=== PATIENT | female | born 1995 | race Caucasian/White ===

== ENCOUNTER → 2020-07-17 11:53 | Outpatient (CLI) | payer BC, SELFPAY ==
[2020-07-17 12:29] LABS: Basophils # 0.1 K/mm3 (0-0.2); Basophils % 0.6 % (0.1-2.0); Eosinophils # 0.1 K/mm3 (0.0-0.4); Eosinophils % 0.5 % (0.1-12.0); Hemoglobin 14.6 g/dL (12.2-16.2); Lymphocytes # 2.7 K/mm3 (0.7-4.5); Lymphocytes % 31.5 % (10-50); Mean Corpuscular HGB Conc 33.1 g/dL (31.8-35.4); Mean Corpuscular Hemoglobin 29.5 pg (27.0-31.2); Mean Corpuscular Volume 89.2 fl (81-99); Mean Platelet Volume 8.3 fl (7.4-10.4); Monocytes # 0.3 K/mm3 (0.1-1.0); Monocytes % 3.2 % (1.7-9.3); Neutrophils # 5.4 K/mm3 (1.8-7.8); Neutrophils % 64.2 % (37.0-80.0); Platelet Count 295 K/mm3 (142-424); Red Blood Count 4.93 M/mm3 (4.20-5.40); Red Cell Distribution Width 13.1 % (11.5-17.5); White Blood Count 8.5 K/mm3 (4.8-10.8)
[2020-07-17 12:49] LABS: Chloride 105 mmol/L (98-107); Potassium 4.4 mmoL/L (3.5-5.1); Sodium 139 mmol/L (136-145)
[2020-07-17 12:51] LABS: Alanine Aminotransferase 11 U/L (12-78); Aspartate Amino Transferase 21 U/L (14-36); Bilirubin,Unconjugated 0.6 mg/dL (0.0-1.1); Blood Urea Nitrogen 14 mg/dl (7-17); Estimated Glomerular Filt Rate 87 ml/min (>60); GFR (African American) 106 ML/MIN (>60)
[2020-07-17 12:52] LABS: Albumin Level 4.9 g/dl (3.5-5.0); Alkaline Phosphatase 69 U/L (38-126); Anion Gap 15.4 mEq/L (5-15); Bilirubin,Direct 0.2 mg/dl (0.0-0.4); Bilirubin,Indirect 0.5 mg/dL (0.0-0.9); Bilirubin,Total 0.7 mg/dl (0.2-1.3); Carbon Dioxide 23 mmol/L (22.0-30.0); Chol/HDL Ratio 3.7 (1-3.5); Cholesterol 259 mg/dl (140-200); Glucose 94 mg/dl (74-100); HDL Cholesterol 70 mg/dl (40-60); Triglycerides 232 mg/dl (30-150); VLDL Cholesterol 46 mg/dL (0-40)
[2020-07-17 13:03] LABS: Direct LDL Cholesterol 150.31 mg/dL (100-129)
[2020-07-17 13:09] LABS: Free T4 (Free Thyroxine) 0.92 ng/dl (0.78-2.19)
[2020-07-17 13:23] LABS: Thyroid Stimulating Hormone 2.42 uIU/mL (0.465-4.68)
== END ==
PROVIDERS: Visit Provider Physician Assistant
DX: I10 Essential (primary) hypertension (principal); I34.1 Nonrheumatic mitral (valve) prolapse; R40.0 Somnolence; Z82.49 Family history of ischemic heart disease and other diseases of the circulatory system
CPT/HCPCS: 36415; 80048; 80061; 80076; 84439; 84443; 85025

== ENCOUNTER 2020-12-18 20:35 | Emergency (ER) | payer BC, SELFPAY ==
[2020-12-18 21:15] VITALS: BP 171/98; PULSE 139; RESP 18; TEMP 37.2; O2SAT 98; BMI 25.8
[2020-12-18 21:19] VITALS: BP 132/88; PULSE 86; RESP 18; TEMP 36.9
--- NOTE | 2020-12-18 21:41 | HMH.EDUTC ---
[facility] [place] Disposition Clinical Impression: Viral syndrome, Exposure to COVID-19 virus Disposition: Home, Self-Care Condition on Discharge: Good Instructions: DI for Viral Syndrome, Preventing the Spread of Coronavirus Discharge Instructions Additional Instructions: Drink plenty of fluids. Take tylenol for pain or fever. Return if you begin to have difficulty breathing. Follow up with your regular doctor. GO TO THE ER FOR ANY WORSENING SYMPTOMS Quarantine until you know the results of your covid-19 test. If it is positive, the health department should call you and give you further instructions about your length of Quarantine and other things. Notify your school or workplace of your results and follow their instructions regarding return to work/school. Referrals: Provider,Referral, [Primary Care Provider] - Forms: Work/School Release Time of Disposition: 21:43 Medical Decision Making - Medical Records Medical records reviewed: No: I reviewed the patient's medical records. - Tay Inquiry Pt receiving controlled substance: No Vital Signs: 12/18/20 21:15 12/18/20 21:19 Temperature 99 F 98.5 F Temperature Source Oral Pulse Rate 86 Pulse Rate [Left] 139 H Respiratory Rate 18 18 Blood Pressure 132/88 Blood Pressure [Right Arm] 171/98 H Blood Pressure Mean [Right Arm] 122 02 Sat by Pulse Oximetry 98 - Lab Data Lab results reviewed: Yes: I reviewed the patient's lab results. Orders (Tests/Meds): ORDERS Category Date Time Status Covid-19 Nasal PCR ([facility]) Routine Lab 12/18/20 21:12 Received [facility] [place] HPI - General Stated complaint: covid test Time Seen by Provider: 12/18/20 21:25 Mode of Arrival: Ambulatory Source of Information: Patient Limitations: No Limitations Description of Symptoms (Recalled from Triage Doc. by RN): pt c/o a lethargy, chills, HUFFMAN and cough. HEENT Symptoms (Recalled from RN notes): Yes (HUFFMAN) Resp Symptoms (Recalled from RN notes): Yes (cough) Skin Symptoms (Recalled from RN notes): No MS Symptoms (Recalled from RN notes): No Functional Status (Recalled from RN notes): chills and lethargy - History of Present Illness Provider Complaint: She states that since yesterday she has had a head ache, she has felt bad and she has been very tired. 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 She denies shortness of breath and chest pain. - Related Data Home Medications Medication Instructions Recorded Confirmed drospirenone 3 mg-ethinyl 1 tab PO DAILY tab 07/17/20 07/17/20 estradiol 0.03 mg tablet Allergies Allergy/AdvReac Type Severity Reaction Status Date / Time No Known Allergies Allergy Verified 07/17/20 11:24 - Worker's Comp Is this a Worker's Comp case?: No [facility] History - Hepatitis A Screen Drug use history?: No High risk sexual behaviors?: No History of sexually transmitted infection?: No Currently employed?: No Childcare worker?: No Do you have indoor plumbing?: Yes Do you have electricity?: Yes Attestation statement:: This patient has been screened for Hepatitis A risk factors. I have reviewed the patient's past medical history: Yes Medical History: Reports:: Hypertension Other Surgeries: Yes: No Previous Surgery - Social History Smoking Status: Never smoker Alcohol Intake: never Substance Use Type: denies use Occupational Status: employed, disabled Family Hx:: Coronary Artery Disease ROS Obtained: Yes All systems reviewed & no additional complaints - Constitutional Constitutional: Reports system reviewed and no additional complaints, except as docu - Eyes Eyes: Reports system reviewed and no additional complaints, except as docu - ENT Ears, Nose, Mouth, and Throat: Reports system reviewed and no additional complaints, except as docu - Cardiovascular Cardiovascular: Reports system reviewed and no additional complaints, except as docu - Respiratory
--- NOTE | 2020-12-19 09:14 | PC.NURSE ---
relayed pos. covid results.
== END 2020-12-18 21:50 | disposition home or self-care (01) ==
PROVIDERS: Emergency Provider Nurse Practitioner Family
DX: U07.1 COVID-19 (principal)
CPT/HCPCS: 99202; G0463; U0003

== ENCOUNTER → 2021-12-23 12:37 | Outpatient (CLI) | payer OTHER, SELFPAY ==
--- NOTE | 2021-12-23 12:37 | US_ITS ---
FINAL REPORT CLINICAL HISTORY: abnormal uterine bleeding FINDINGS: Transvaginal sonographic images of the pelvis were obtained. The uterus measures 7.4 x 4.2 x 2.9 cm The endometrium measures 4 mm, which is within normal limits. No uterine mass is identified. The right ovary measures 2.6 cm in length and left ovary measures 2.4 cm in length. Normal blood flow seen to the ovaries. Small follicles are present. There is no evidence of free fluid. IMPRESSION: No acute abnormality identified. Reviewed, Interpreted and Dictated by Jovanni Haider III, MD Transcribed by Lissette Salinas Authenticated and [facility]
== END ==
PROVIDERS: PCP Obstetrics & Gynecology; Visit Provider Obstetrics & Gynecology
DX: N93.9 Abnormal uterine and vaginal bleeding, unspecified (principal)
CPT/HCPCS: 76830